=== PATIENT | female | born 1940 | race African-American/Black ===

== ENCOUNTER 2016-06-26 14:37 | Emergency (ER) | payer MEDICARE, OTHER ==
--- NOTE | 2016-06-26 15:15 | PHYS DOC ---
Past Medical History Past Medical History: No Pertinent History Additional Past Medical Histor: DIZZY SPELLS, Past Surgical History: Other Additional Past Surgical Histo: d&c Alcohol Use: None Drug Use: None Adult General Chief Complaint Chief Complaint: LOWER EXT PAIN [facility] HPI Patient is a 75 year old female with no significant medical history who presents today with mild left posterior hip pain that began today after she tripped on a rug at [facility] and fell. Patient denies any loss of consciousness. Review of Systems Review of Systems Constitutional: Denies fever or chills [] Eyes: Denies change in visual acuity, redness, or eye pain [] HENT: Denies nasal congestion or sore throat [] Respiratory: Denies cough or shortness of breath [] Cardiovascular: No additional information not addressed in HPI [] GI: Denies abdominal pain, nausea, vomiting, bloody stools or diarrhea [] : Denies dysuria or hematuria [] Musculoskeletal: Left hip pain Integument: Denies rash or skin lesions [] Neurologic: Denies headache, focal weakness or sensory changes [] Endocrine: Denies polyuria or polydipsia [] Allergies Allergies Allergies Coded Allergies Type Severity Reaction Last Updated Verified No Known Drug Allergies 06/29/14 No Physical Exam Physical Exam Constitutional: Well developed, well nourished, no acute distress, non-toxic appearance. [] HENT: Normocephalic, atraumatic, bilateral external ears normal, oropharynx moist, no oral exudates, nose normal. [] Eyes: PERRLA, EOMI, conjunctiva normal, no discharge. [] Neck: Normal range of motion, no tenderness, supple, no stridor. [] Cardiovascular:Heart rate regular rhythm, no murmur [] Lungs & Thorax: Bilateral breath sounds clear to auscultation [] Abdomen: Bowel sounds normal, soft, no tenderness, no masses, no pulsatile masses. [] Skin: Warm, dry, no erythema, no rash. [] Back: No tenderness, no CVA tenderness. [] Extremities: Left hip with no obvious deformity, no ecchymosis, or tenderness on palpation of the left posterior mid hip. Full range of motion to the left hip , adequate extension and extension of the left lower extremity, adequate internal rotation and external rotation of the left hip. +2 left pedal pulse. Cap refill less than 2 seconds left lower extremity. Sensation intact left lower extremity. Neurologic: Alert and oriented X 3, normal motor function, normal sensory function, no focal deficits noted. [] Psychologic: Affect normal, judgement normal, mood normal. [] Current Patient Data Vital Signs Vital Signs Date Time Temp Pulse Resp B/P Pulse Ox O2 Delivery O2 Flow Rate FiO2 06/26/16 14:37 98.6 70 18 174/77 98 Room Air 98.6 EKG EKG [] Radiology/Procedures Radiology/Procedures [] Course & Med Decision Making Course & Med Decision Making Pertinent Labs and Imaging studies reviewed. (See chart for details) Patient is in the ED with left hip pain after falling on it. There was no loss of consciousness. Left hip with pelvic x-ray interpreted by radiologist are negative for any acute findings. Patient was discharged with instructions to take [id number] pain relievers as needed. Encouraged to apply ice to the affected area and elevate the affected area. Instructed to increase activity level. Instructed to follow-up with the provided orthopedic doctor primary care doctor in a week if pain continues. Provided return precautions and discharged in stable condition. Dragon Disclaimer Dragon Disclaimer This electronic medical record was generated, in whole or in part, using a voice recognition dictation system. Departure Departure Impression: Primary Impression: Fall from standing Additional Impression: Contusion of left hip Disposition: 01 HOME, SELF-CARE Condition: STABLE Referrals: PELON JACK MD (PCP) SHAILA NAVARRO MD Follow-up with your own doctor the provided doctor in a week if pain continues Patient Instructions: Contusion, Muscle Strain Additional Instructions: You were seen for left hip contusion as well as muscle strain of the left hip after falling. We recommend you ice and elevate the affected extremity. Try and get up and ambulate as much as you can. Take the prescribed medicines as needed. Come back to the ED for any concerning symptoms otherwise follow-up with your own doctor in one week. Scripts Naproxen 375 Mg Tablet1 Tab PO BID #14 TAB Ref 0 MUST TAKE WITH FOOD Prov:MUTUNGA,MELISSA [employer] G[employer]ERING EDITOR 06/26/16 Cyclobenzaprine Hcl 10 Mg Tablet1 Tab PO TID #30 TAB Prov:MUTUNGA,MELISSA [employer] GATHERING EDITOR 06/26/16 Problem Qualifiers Primary Impression: Fall from standing Encounter type: initial encounter Qualified Code: W19.XXXA - Unspecified fall, initial encounter Additional Impression: Contusion of left hip Encounter type: initial encounter Qualified Code: S70.02XA - Contusion of left hip, initial encounter MELISSA AWAD APRN Jun 26, 2016 15:15
--- NOTE | 2016-06-26 15:54 | RAD ---
Pelvis with left hip, 3 views, 06/26/2016: History: Pain after a fall No fracture or dislocation is identified. The hip joints are fairly well-maintained with only minimal marginal spurring. IMPRESSION: No acute bony abnormality is detected.
[2016-06-26] MEDS ORDERED: NAPR375T3 PO (16:07)
[2016-06-26] MEDS ORDERED: CYCL10TA2 PO (16:07)
[2016-06-26 16:15] VITALS: BP 174/84
== END 2016-06-26 16:40 | disposition home or self-care (01) ==
LOC: ER 14:37
DX: S70.02XA Contusion of left hip, initial encounter (principal); W01.0XXA Fall on same level from slipping, tripping and stumbling without subsequent striking against object, initial encounter; Y93.89 Activity, other specified; Y92.89 Other specified places as the place of occurrence of the external cause; Y99.8 Other external cause status
CPT/HCPCS: 73502; 99284

== ENCOUNTER 2016-11-13 15:32 | Emergency (ER) | payer MEDICARE, OTHER ==
[~2016-11-13 15:32] MED LIST: CYCL10TA2 PO; NAPR375T3 PO
--- NOTE | 2016-11-13 16:26 | EKG ---
[facility] [address] [place] [address] Test Date: 2016-11-13 Test Time: 16:04:22 Pat Name: KERON GRUBBS Department: Room: Gender: F [employer]: : 1940 Requested By: HIWOT MAYBERRY Order Number: [id number] Reading MD: Measurements Intervals [place] Rate: 61 P: 18 DE: 182 QRS: -14 QRSD: 80 T: -10 QT: 422 QTc: 431 Interpretive Statements SINUS RHYTHM ATRIAL PREMATURE COMPLEX(ES) LEFTWARD AXIS QRS(T) CONTOUR ABNORMALITY CANNOT RULE OUT ANTEROSEPTAL MYOCARDIAL DAMAGE T ABNORMALITY IN INFERIOR LEADS RI6.01 Unconfirmed report No previous ECG available for comparison
--- NOTE | 2016-11-13 16:34 | RAD ---
Portable chest, 11/13/2016: History: Dizziness, hypertension, bradycardia Comparison is made to a study from 06/29/2014. The heart size and pulmonary vascularity are normal. There is tortuosity of the thoracic aorta. No pulmonary infiltrates are seen. There is no evidence of pleural fluid. IMPRESSION: 1. Tortuous aorta. 2. No acute cardiopulmonary abnormality is detected.
[2016-11-13 16:39] LABS: BASO % 1 % (0-3); EOS % 1 % (0-3); HEMATOCRIT 45.4 % (36.0-47.0); LYMPH % 38 % (24-48); MEAN CORPUSCULAR HEMOGLOBIN 31 pg (25-35); MEAN CORPUSCULAR HGB CONC 33 g/dL (31-37); MEAN CORPUSCULAR VOLUME 92 fL (79-100); MONO % 8 % (0-9); NEUT % 53 % (31-73); PLATELET COUNT 216 x10^3/uL (140-400); RED BLOOD COUNT 4.92 x10^6/uL (3.50-5.40); RED CELL DISTRIBUTION WIDTH 14.7 % (11.5-14.5); WHITE BLOOD COUNT 5.3 x10^3/uL (4.0-11.0)
[2016-11-13 17:08] LABS: ALBUMIN 3.7 g/dL (3.4-5.0); CALCIUM 8.8 mg/dL (8.5-10.1); CREATININE 0.8 mg/dL (0.6-1.0); DIRECT BILIRUBIN 0.1 mg/dL (0.0-0.2); GFR 84.2; MAGNESIUM 2.1 mg/dL (1.8-2.4); TOTAL BILIRUBIN 0.4 mg/dL (0.2-1.0); TOTAL PROTEIN 7.5 g/dL (6.4-8.2)
[2016-11-13 17:23] LABS: BILIRUBIN,URINE NEGATIVE (NEG); GLUCOSE,URINE NEGATIVE (NEG); NITRITE,URINE NEGATIVE (NEG); PROTEIN,URINE NEGATIVE (NEG-TRACE); UROBILINOGEN,URINE 0.2 mg/dL (0.2 mg/dL)
[2016-11-13 17:32] LABS: BACTERIA,URINE 0 /HPF (0-FEW); RBC,URINE OCC /HPF (0-2); SQUAMOUS EPITHELIAL CELL,UR FEW /LPF
--- NOTE | 2016-11-13 17:32 | ED.ADGEN ---
Past Medical History Past Medical History: Hypothyroid Additional Past Medical Histor: DIZZY SPELLS, Past Surgical History: Other Additional Past Surgical Histo: d&c Alcohol Use: None Drug Use: None Adult General Chief Complaint Chief Complaint: HYPERTENSION HPI HPI Patient is a 75 year old woman, history of hypertension, hypothyroidism, who was recently started on Synthroid, she states she's been taking intermittently over the past week, who presents emergency Department with a complaint of dizziness. Patient states she's experienced similar to this previously, and has been told that she was "dehydrated sometimes", was told to take meclizine, she states she did not take today. She states that she's been experiencing more frequent episodes of the past week or so, and today along with a feeling of lightheadedness, not a vertiginous type symptoms, she states that her legs also were feeling "weak and wobbly", and she is currently using a cane. She denies any dizziness at this time, states that she was seen at urgent care center, and was hypertensive, and was told that she had "an irregular heartbeat", and it was slow, and was told to come to the ED for additional evaluation. She's not had a history of heart problems, does not take any other medications. Denies any injuries, any syncope, any chest pain, any shortness of breath, any focal numbness or weakness aside from the "wobbliness", in her lower extremities. Denies any drugs, alcohol or cigarettes. Review of Systems Review of Systems Constitutional: Denies fever or chills. [] Eyes: Denies change in visual acuity. [] HENT: Denies nasal congestion or sore throat. [] Respiratory: Denies cough or shortness of breath. [] Cardiovascular: Denies chest pain or edema. [] GI: Denies abdominal pain, nausea, vomiting, bloody stools or diarrhea. [] : Denies dysuria. [] Musculoskeletal: Denies back pain or joint pain. [] Integument: Denies rash. [] Neurologic: Denies headache, sensory changes. Weakness in the lower extremities. Endocrine: Denies polyuria or polydipsia. [] Lymphatic: Denies swollen glands. [] Psychiatric: Denies depression or anxiety. [] Current Medications Current Medications Current Medications Medications (Trade) Dose Ordered Sig/Matias Start Time Stop Time Status Last Admin Dose Admin Amlodipine Besylate (Norvasc) 5 mg 1X ONCE 11/13/16 19:15 11/13/16 19:16 DC 11/13/16 19:29 5 MG Meclizine HCl (Antivert) 25 mg 1X ONCE 11/13/16 19:15 11/13/16 19:16 DC 11/13/16 19:29 25 MG Allergies Allergies Allergies Coded Allergies Type Severity Reaction Last Updated Verified No Known Drug Allergies 06/29/14 No Physical Exam Physical Exam Constitutional: Well developed, well nourished, no acute distress, non-toxic appearance. [] HENT: Normocephalic, atraumatic, bilateral external ears normal, oropharynx moist, no oral exudates, nose normal. [] Eyes: PERRLA, EOMI, conjunctiva normal, no discharge. [] Neck: Normal range of motion, no tenderness, supple, no stridor. [] Cardiovascular:Heart rate regular rhythm, no murmur, S1, S2, rubs or gallops. [] Lungs & Thorax: Bilateral breath sounds clear to auscultation, no wheezing, rhonchi, rales. No chest or crepitus or tenderness. [] Abdomen: Bowel sounds normal, soft, no tenderness, no rebound, rigidity, no guarding, no masses, no pulsatile masses. [] Skin: Warm, dry, no erythema, no rash. [] Back: No tenderness, no CVA tenderness. [] Extremities: No tenderness, no cyanosis, no clubbing, ROM intact, no edema. Negative Homans sign. [] Neurologic: Alert and oriented X 3, normal motor function, normal sensory function, no focal deficits noted. [] Psychologic: Affect normal, judgement normal, mood normal. [] Current Patient Data Vital Signs Vital Signs Date Time Temp Pulse Resp B/P (MAP) Pulse Ox O2 Delivery O2 Flow Rate FiO2 11/13/16 19:53 68 143/84 (103) 99 Room Air 11/13/16 17:33 18 11/13/16 15:45 98.3 98.3 Lab Values Laboratory Tests Test 11/13/16 16:20 11/13/16 17:18 White Blood Count 5.3 x10^3/uL (4.0-11.0) Red Blood Count 4.92 x10^6/uL (3.50-5.40) Hemoglobin 15.0 g/dL (12.0-15.5) Hematocrit 45.4 % (36.0-47.0) Mean Corpuscular Volume 92 fL (79-100) Mean Corpuscular Hemoglobin 31 pg (25-35) Mean Corpuscular Hemoglobin Concent 33 g/dL (31-37) Red Cell Distribution Width 14.7 % (11.5-14.5) H Platelet Count 216 x10^3/uL (140-400) Neutrophils (%) (Auto) 53 % (31-73) Lymphocytes (%) (Auto) 38 % (24-48) Monocytes (%) (Auto) 8 % (0-9) Eosinophils (%) (Auto) 1 % (0-3) Basophils (%) (Auto) 1 % (0-3) Neutrophils # (Auto) 2.8 x10^3uL (1.8-7.7) Lymphocytes # (Auto) 2.0 x10^3/uL (1.0-4.8) Monocytes # (Auto) 0.4 x10^3/uL (0.0-1.1) Eosinophils # (Auto) 0.0 x10^3/uL (0.0-0.7) Basophils # (Auto) 0.0 x10^3/uL (0.0-0.2) Sodium Level 146 mmol/L (136-145) H Potassium Level 4.0 mmol/L (3.5-5.1) Chloride Level 108 mmol/L (98-107) H Carbon Dioxide Level 28 mmol/L (21-32) Anion Gap 10 (6-14) Blood Urea Nitrogen 18 mg/dL (7-20) Creatinine 0.8 mg/dL (0.6-1.0) Estimated GFR (Cockcroft-Gault) 84.2 Glucose Level 95 mg/dL (70-99) Calcium Level 8.8 mg/dL (8.5-10.1) Magnesium Level 2.1 mg/dL (1.8-2.4) Total Bilirubin 0.4 mg/dL (0.2-1.0) Direct Bilirubin 0.1 mg/dL (0.0-0.2) Aspartate Amino Transferase (AST) 18 U/L (15-37) Alanine Aminotransferase (ALT) 20 U/L (14-59) Alkaline Phosphatase 60 U/L (46-116) Troponin I Quantitative < 0.017 ng/mL (0.000-0.055) ZY-All-S-Type Natriuretic Peptide 59 pg/mL (0-449) Total Protein 7.5 g/dL (6.4-8.2) Albumin 3.7 g/dL (3.4-5.0) Lipase 83 U/L (73-393) Thyroid Stimulating Hormone (TSH) 2.352 uIU/mL (0.358-3.74) Urine Collection Type Unknown Urine Color Yellow Urine Clarity Clear Urine pH 6.0 Urine Specific Sylva 1.010 Urine Protein Negative mg/dL (NEG-TRACE) Urine Glucose (UA) Negative mg/dL (NEG) Urine Ketones (Stick) Negative mg/dL (NEG) Urine Blood Negative (NEG) Urine Nitrite Negative (NEG) Urine Bilirubin Negative (NEG) Urine Urobilinogen Dipstick 0.2 mg/dL (0.2 mg/dL) Urine Leukocyte Esterase Small (NEG) Urine RBC Occ /HPF (0-2) Urine WBC 1-4 /HPF (0-4) Urine Squamous Epithelial Cells Few /LPF Urine Bacteria 0 /HPF (0-FEW) Urine Opiates Screen Neg (NEG) Urine Methadone Screen Neg (NEG) Urine Barbiturates Neg (NEG) Urine Phencyclidine Screen Neg (NEG) Urine Amphetamine/Methamphetamine Neg (NEG) Urine Benzodiazepines Screen Neg (NEG) Urine Cocaine Screen Neg (NEG) Urine Cannabinoids Screen Neg (NEG) Urine Ethyl Alcohol Neg (NEG) Laboratory Tests 11/13/16 16:20 Laboratory Tests 11/13/16 16:20 EKG EKG EC: Sinus rhythm, heart rate 61 beats minute, left axis deviation, QTC of 431, IL 182, QRS of 80, contrary normalities noted in the anterior septal leads. Abnormal ECG, does not meet STEMI criteria. As interpreted by me. Radiology/Procedures Radiology/Procedures [][facility] [address] [place] [address] IMAGING REPORT Signed PATIENT: KERON GRUBBS ACCOUNT: [id number] : 1940 LOCATION: ER AGE: 75 SEX: F EXAM STATUS: REG ER ORD. PHYSICIAN: HIWOT MAYBERRY DO REASON: Dizziness PROCEDURE: PORTABLE CHEST 1V Portable chest, 11/13/2016: History: Dizziness, hypertension, bradycardia Comparison is made to a study from 06/29/2014. The heart size and pulmonary vascularity are normal. There is tortuosity of the thoracic aorta. No pulmonary infiltrates are seen. There is no evidence of pleural fluid. IMPRESSION: 1. Tortuous aorta. 2. No acute cardiopulmonary abnormality is detected. DICTATED and SIGNED BY: MYNOR ARZATE MD DATE: 11/13/16 1630 CC: PELON HAN MD; HIWOT MAYBERRY DO ~ Course & Med Decision Making Course & Med Decision Making Pertinent Labs and Imaging studies reviewed. (See chart for details) Patient's imaging laboratory studies are not concerning, orthostatics negative and the ED, although patient is noted to have some hypertension. Patient's vertiginous symptoms are consistent with previous episodes of paroxysmal burn 9 vertigo per her description, and she is not experiencing any of the "wobbliness ", which she strains previously. Ambulating without difficult in the ED. She states that she is ready to be discharged home. I did discuss findings as above with Dr. Han, her primary care provider, he requests the patient be initiated on amlodipine 5 mg once daily for blood pressure control, and that she follows up with him in the office next week for reevaluation her blood pressure. He requests also that she right take her Synthroid as directed, and to use meclizine as needed. I did discuss these findings with patient, she was very agreeable this plan, as she has been asymptomatic during her ED stay, and is rated go home. She was given a dose of meclizine and amlodipine the ED without issue, as stated was ambulating without any problems, was discharged home with clear and detailed return instructions, follow-up instructions, medication prescriptions for amlodipine, and precautions as stated. Dragon Disclaimer Dragon Disclaimer This electronic medical record was generated, in whole or in part, using a voice recognition dictation system. Departure Impression: Primary Impression: Hypertension Disposition: 01 HOME, SELF-CARE Condition: IMPROVED Scripts Amlodipine Besylate (AMLODIPINE BESYLATE) 5 Mg Tablet 5 MG PO DAILY, #30 TAB Prov: HIWOT MAYBERRY DO 11/13/16 Meclizine Hcl (MECLIZINE HCL) 25 Mg Tablet 1 TAB PO PRN TID Y for VERTIGO, #30 TAB Prov: HIWOT MAYBERRY DO 11/13/16 HIWOT MAYBERRY DO Nov 13, 2016 17:32
[2016-11-13 17:33] LABS: BARBITURATES NEG (NEG); BENZODIAZEPINES NEG (NEG); CANNABINOIDS NEG (NEG); COCAINE NEG (NEG); METHADONE NEG (NEG); OPIATES NEG (NEG); PHENCYCLIDINE NEG (NEG)
--- NOTE | 2016-11-13 18:11 | RAD ---
Indication: Hypertension, vertigo and nausea. Axial imaging through the brain was performed without contrast. One or more of the following individualized dose reduction techniques were utilized for this examination: 1. Automated exposure control 2. Adjustment of the mA and/or kV according to patient size 3. Use of iterative reconstruction technique Comparison is made with prior head CT from 12/16/2009. The ventricles and sulci are appropriate for the patient's age. No sulcal effacement, midline shift or hemorrhage is detected. The cisterns are patent. The visualized paranasal sinuses are clear. IMPRESSION: No acute intracranial process is detected. Electronically signed by: Napoleon Galindo MD (11/13/2016 6:08 PM) [facility]
[2016-11-13] MEDS ORDERED: MECLIZINE HCL 12.5 MG TABLET. PO ONE (19:15)
[2016-11-13] MEDS ORDERED: amLODIPine BESYLATE 5 MG TABLET PO ONE (19:15)
[2016-11-13 19:53] VITALS: BP 143/84
[2016-11-13] MEDS ORDERED: AMLO5TAB2 PO (20:09)
[2016-11-13] MEDS ORDERED: MECL25TA3 PO (20:09)
== END 2016-11-13 20:16 | disposition home or self-care (01) ==
LOC: ER 15:32
DX: I10 Essential (primary) hypertension (principal); E03.9 Hypothyroidism, unspecified
CPT/HCPCS: 36415; 70450; 71010; 80048; 80076; 80305; 80320; 81001; 83690; 83735; 83880; 84443; 84484; 85027; 87086; 93005; 99285; J8597; G0481

== ENCOUNTER 2020-12-04 15:01 | Emergency (ER) | payer MEDICARE, OTHER ==
[~2020-12-04] VITALS: Ht 165.1 cm; Wt 106.8 kg
[~2020-12-04 15:01] MED LIST changes: +AMLO-186 PO; +MECL-75 PO; +NAPR-695 PO; -NAPR375T3 PO
[2020-12-04 15:33] VITALS: BP 171/86
[2020-12-04] MEDS ORDERED: traMADol 50 MG TABLET ONE (15:51)
[2020-12-04] MEDS ORDERED: traMADol 50 MG TABLET PO ONE (16:00)
--- NOTE | 2020-12-04 16:12 | PHYS DOC ---
Past Medical History Past Medical History: Hypothyroid Additional Past Medical Histor: vertigo Past Surgical History: Other Additional Past Surgical Histo: d&c Smoking Status: Never Smoker Alcohol Use: None Drug Use: None General Adult EDM: Chief Complaint: KNEE INJURY HPI: HPI: Patient is a 79 year old female who presents with was getting out of her car when she twisted her right knee. She now has right lateral knee pain and swelling. She states she can put weight on it. Denies numbness or tingling. Rates her sharp aching pain a 8/10. History of vertigo, hypothyroidism, and d&c. Review of Systems: Review of Systems: Constitutional: Denies fever or chills. [] Eyes: Denies change in visual acuity. [] HENT: Denies nasal congestion or sore throat. [] Respiratory: Denies cough or shortness of breath. [] Cardiovascular: Denies chest pain or + Right knee edema. [] GI: Denies abdominal pain, nausea, vomiting, bloody stools or diarrhea. [] : Denies dysuria. [] Musculoskeletal: Denies back pain or +Right knee joint pain. [] Integument: Denies rash. [] Neurologic: Denies headache, focal weakness or sensory changes. [] Endocrine: Denies polyuria or polydipsia. [] Lymphatic: Denies swollen glands. [] Psychiatric: Denies depression or anxiety. [] Heart Score: C/O Chest Pain: No Risk Factors: Risk Factors: DM, Current or recent (<one month) smoker, HTN, HLP, family history of CAD, obesity. Risk Scores: Score 0 - 3: 2.5% MACE over next 6 weeks - Discharge Home Score 4 - 6: 20.3% MACE over next 6 weeks - Admit for Clinical Observation Score 7 - 10: 72.7% MACE over next 6 weeks - Early Invasive Strategies Current Medications: Current Medications Medications (Trade) Dose Ordered Sig/Matias Start Time Stop Time Status Last Admin Dose Admin Tramadol HCl (Ultram) 50 mg STK-MED ONCE 12/04/20 15:51 12/04/20 15:52 DC Allergies: Allergies: Allergies Coded Allergies Type Severity Reaction Last Updated Verified No Known Drug Allergies 12/04/20 No Physical Exam: PE: Constitutional: Well developed, well nourished, no acute distress, non-toxic appearance. [] HENT: Normocephalic, atraumatic, bilateral external ears normal, oropharynx moist, no oral exudates, nose normal. [] Eyes: PERRLA, EOMI, conjunctiva normal, no discharge. [] Neck: Normal range of motion, no tenderness, supple, no stridor. [] Cardiovascular:Heart rate regular rhythm, no murmur [] Lungs & Thorax: Bilateral breath sounds clear to auscultation [] Abdomen: Bowel sounds normal, soft, no tenderness, no masses, no pulsatile masses. [] Skin: Warm, dry, no erythema, no rash. [] Back: No tenderness, no CVA tenderness. [] Extremities: No tenderness, no cyanosis, no clubbing, Right knee ROM intact but painful when bending, 1+ edema. [] Neurologic: Alert and oriented X 3, normal motor function, normal sensory function, no focal deficits noted. [] Psychologic: Affect normal, judgement normal, mood normal. [] Current Patient Data: Vital Signs: Vital Signs Date Time Temp Pulse Resp B/P (MAP) Pulse Ox O2 Delivery O2 Flow Rate FiO2 12/04/20 15:33 98.4 61 18 171/86 (103) 98 Room Air 98.4 EKG: EKG: [] Radiology/Procedures: Radiology/Procedures: [] Impression: [facility] [address] [place], [place] [id number] IMAGING REPORT Signed PATIENT: KERON GRUBBS ACCOUNT: [id number] : 1940 LOCATION: ER AGE: 79 SEX: F EXAM STATUS: REG ER ORD. PHYSICIAN: PEDRO ELISE APRN REASON: pain after twisting knee PROCEDURE: KNEE RIGHT 4V Right knee 4 views: Reason for examination: Pain after twisting knee. No acute fracture or dislocation is seen. The bone density is normal. There is degenerative spurring present with joint space narrowing. There does appear to be a moderate joint effusion in the suprapatellar bursa. 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 Moderate joint effusion evident at the suprapatellar bursa. Electronically signed by: Vijay Lux MD (12/04/2020 5:44 PM) [facility] DICTATED and SIGNED BY: VIJAY LUX MD DATE: 12/04/20 [id number] Course & Med Decision Making: Course & Med Decision Making Pertinent Labs and Imaging studies reviewed. (See chart for details) See HPI. Alert and oriented x 4. Speaks in full clear sentences. Ambulatory with a walker and slightly limping on left leg. Knee immobilizer placed. 1+ swelling. No deformity, laxity, redness, tenderness to the joint. Pedal pulse strong and present. Does have full rage of motion with the joint but painful when bending. Cap refill less than 2 seconds. [] Dragon Disclaimer: Dragon Disclaimer: This electronic medical record was generated, in whole or in part, using a voice recognition dictation system. Departure Departure Impression: Primary Impression: Left knee injury Qualified Codes: S89.92XA - Unspecified injury of left lower leg, initial encounter Disposition: HOME / SELF CARE / HOMELESS Condition: STABLE Referrals: PELON JACK MD (PCP) Patient Instructions: Knee Pain Additional Instructions: Follow up with othopedic as soon as possible. Take medication as prescribed and with food. Remember these can make you sleepy or dizzy. Scripts Tramadol Hcl (TRAMADOL HCL) 50 Mg Tablet 50 MG PO Q6HRS PRN for PAIN, #10 TAB Prov: PEDRO ELISE APRN 12/04/20 PEDRO ELISE APRN Dec 04, 2020 16:11
--- NOTE | 2020-12-04 17:46 | RAD ---
Right knee 4 views: Reason for examination: Pain after twisting knee. No acute fracture or dislocation is seen. The bone density is normal. There is degenerative spurring present with joint space narrowing. There does appear to be a moderate joint effusion in the suprapat ellar bursa. 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 Moderate joint effusion evident at the suprapatellar bursa. Electronically signed by: Antonia Velazquez MD (12/04/2020 5:44 PM) [facility]
[2020-12-04] MEDS ORDERED: TRAM50TA PO (18:01)
== END 2020-12-04 18:36 | disposition home or self-care (01) ==
LOC: ER 15:01
DX: S89.92XA Unspecified injury of left lower leg, initial encounter (principal); E03.9 Hypothyroidism, unspecified; X50.9XXA Other and unspecified overexertion or strenuous movements or postures, initial encounter; Y93.89 Activity, other specified; Y92.89 Other specified places as the place of occurrence of the external cause; Y99.8 Other external cause status
CPT/HCPCS: 29505; 73564; 99283